=== PATIENT | male | born 1985 | race Caucasian/White ===

== ENCOUNTER 2018-01-18 23:00 | Emergency (ER) | payer OTHER ==
[~2018-01-18] VITALS: Ht 180.3 cm; Wt 97.2 kg
[2018-01-18 23:14] VITALS: BP 137/89
--- NOTE | 2018-01-19 00:37 | NUR ---
TO ER CHAIR A
--- NOTE | 2018-01-19 00:45 | NUR ---
32/M CAME IN W C/O LT SIDE FACIAL NUMBNESS X 1 DAY. PT REPORTS SUDDENT ONSET LT SIDE FACIAL NUMBNESS, DENIES TRAUMA/INJURY. NO FACIAL DROOPNESS NOTED, ASSYMETRICAL SMILE NOTED, UNABLE TO LIFT LEFT EYEBROW, TONGUE MIDLINE, ERIN HOUSING OFFICER EQUAL, GCS 15, AOX4. ER MD BAILEY MADE AWARE. DENIES PMH/RX/OTC, REPORTS METH USE X 2 YEARS, LAST METH USED YESTERDAY
--- NOTE | 2018-01-19 02:31 | NUR ---
Patient discharged with v/s stable. Written and verbal after care instructions given and explained. Patient alert, oriented and verbalized understanding of instructions. Ambulatory with steady gait. All questions addressed prior to discharge. ID band removed. Patient advised to follow up with PMD. Rx of PREDNISONE 20MG AND VALTREX 1G given. Patient educated on indication of medication including possible reaction and side effects. Opportunity to ask questions provided and answered.
[2018-01-19 02:32] VITALS: BP 122/71
== END 2018-01-19 02:32 | disposition home or self-care (01) ==
LOC: MED 23:00
DX: G51.0 Bell's palsy (principal); Z88.0 Allergy status to penicillin
CPT/HCPCS: 70450; 99284

== ENCOUNTER 2022-01-25 00:55 | Emergency (ER) | payer MEDICAID, OTHER ==
[~2022-01-25] VITALS: Ht 182.9 cm; Wt 95.3 kg
[2022-01-25 01:00] VITALS: BP 151/88
--- NOTE | 2022-01-25 01:06 | NUR ---
AMBULATED TO BED 7 FRON TRIAGE
--- NOTE | 2022-01-25 01:16 | NUR ---
Dr. Fink at bedside to exam patient.
[2022-01-25] MEDS ORDERED: ACET-10509 PO (01:21)
[2022-01-25] MEDS ORDERED: IBUP-2213 PO (01:21)
[2022-01-25] MEDS ORDERED: AMOX1TAB8 PO (01:21)
[2022-01-25] MEDS ORDERED: IBUPROFEN 600 MG TAB PO ONE (01:25)
[2022-01-25 01:41] VITALS: BP 128/75
--- NOTE | 2022-01-25 01:41 | NUR ---
Patient discharged with v/s stable. Written and verbal after care instructions given and explained. Patient alert, oriented and verbalized understanding of instructions. Ambulatory with steady gait. All questions addressed prior to discharge. ID band removed. Patient advised to follow up with PMD. Rx of Amox-Clav, Tylenol and Ibuprofen given. Patient educated on indication of medication including possible reaction and side effects. Opportunity to ask questions provided and answered.
== END 2022-01-25 01:41 | disposition home or self-care (01) ==
LOC: MED 00:55
DX: K04.01 Reversible pulpitis (principal); Z88.0 Allergy status to penicillin
CPT/HCPCS: 99283